=== PATIENT | male | born 1990 | race African-American/Black ===

== ENCOUNTER 2020-06-02 21:26 | Emergency (ER) | payer OTHER ==
[~2020-06-02] VITALS: Ht 182.9 cm; Wt 79.4 kg
== END 2020-06-02 22:45 | disposition home or self-care (01) ==
LOC: ER 21:26
DX: S91.322A Laceration with foreign body, left foot, initial encounter (principal); W26.8XXA Contact with other sharp object(s), not elsewhere classified, initial encounter; Y93.89 Activity, other specified; Y92.832 Beach as the place of occurrence of the external cause; Y99.8 Other external cause status

== ENCOUNTER 2020-06-12 14:35 | Emergency (ER) | payer OTHER ==
[~2020-06-12] VITALS: Ht 182.9 cm; Wt 79.4 kg
== END 2020-06-12 16:50 | disposition home or self-care (01) ==
LOC: ER 14:35
DX: Z48.02 Encounter for removal of sutures (principal)